=== PATIENT | male | born 1975 | race African-American/Black ===

== ENCOUNTER 2019-10-06 11:18 | Emergency (ER) | payer OTHER ==
[2019-10-06 11:46] VITALS: BP 156/102
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
--- NOTE | 2019-10-06 12:33 | XRay Report ---
RIGHT SHOULDER 3 VIEWS INDICATION / CLINICAL INFORMATION: pain. COMPARISON: None available. FINDINGS: No fracture or dislocation. No significant degenerative change. Signer Name: Harlan Henriquez MD Signed: 10/06/2019 12:28 PM Workstation Name: [id number]
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
== END 2019-10-06 15:05 | disposition home or self-care (01) ==
LOC: ED 11:18
DX: S46.911A Strain of unspecified muscle, fascia and tendon at shoulder and upper arm level, right arm, initial encounter (principal); V49.69XA Unspecified car occupant injured in collision with other motor vehicles in traffic accident, initial encounter; Y93.89 Activity, other specified; Y92.410 Unspecified street and highway as the place of occurrence of the external cause; Y99.8 Other external cause status